=== PATIENT | male | born 1940 | race Caucasian/White ===

== ENCOUNTER 2017-01-04 16:14 | Inpatient (IN) | payer MEDICARE, OTHER ==
[~2017-01-04] VITALS: Ht 198.1 cm; Wt 111.6 kg
--- NOTE | ~2017-01-04 | HP ---
PATIENT'S NAME: WILNER JAVIER [facility] AGE: 76 Y [address] ROOM: [address] [place], [place] [address] LOCATION: GPCU ADMIT DATE: 01/04/2017 History & Physical DISCHARGE DATE: FAMILY PHYSICIAN: PHYSICIAN, UNKNOWN ATTENDING PHYSICIAN: KEMI MOSELEY DATE OF SERVICE: CHIEF COMPLAINT: Shortness of breath and ear pain. HISTORY OF PRESENT ILLNESS: This is a 76-year-old male who [facility] care. As per history obtained from the referring physician and the patient, the patient lives independently at home. He started having right neck pain and sore throat about a week ago. He also started having right ear pain at that point of time. The patient states that he put some ear drops in his right ear and that had a stinging sensation. He continued to have right ear pain. He went to his primary care physician and was prescribed some antibiotics. The patient states that the right ear pain did not get better for about 3 days and he went back and the antibiotics were changed to cefdinir at that point of time. The patient's right ear pain did not change at all. He still continues to have right ear pain and has right neck pain as well currently. He still has a sore throat and has a hacking cough per patient. He denies having any fever at home. The patient was found today at home by Home Health in a debilitated condition and then transferred to the ER at the referral hospital. The patient stated that he could not breathe at that point of time. The patient also states that after he was placed on antibiotics he has not been able to keep anything down. He started having nausea and vomiting and has not been able to keep anything down. [facility] and his saturation was 77% on room air. He was placed on nasal cannula oxygen and his saturations came up. By the time I was called, the patient was on 10 L of oxygen via nasal cannula. He was also found to be incontinent of urine. 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 He has chronic respiratory failure and uses 2 L of oxygen off and on during the day as well as night. The patient currently appears to be in atrial fibrillation with RVR. His INR is supratherapeutic and he received a dose of vitamin K at the referral hospital. He still complains of right neck pain and right ear pain that he currently rates as 4/10 intensity. He has not had any ear drainage currently. Denies any fever at this point of time. He appears to be short of breath currently. He has atrial fibrillation with rapid ventricular rate and rate of PATIENT'S NAME: WILNER JAVIER [facility] AGE: 76 Y [address] ROOM: [address] [place] [id number] [facility] AD[facility] DATE: 01/04/2017 History & Physical DISCHARGE DATE: FAMILY PHYSICIAN: PHYSICIAN, UNKNOWN ATTENDING PHYSICIAN: KEMI MOSELEY 119 beats per minute. Denies any chest pain at this point of time. Denies any lightheadedness. Denies abdominal pain, diarrhea, or constipation. He has noticed swelling in his legs bilaterally over the past few days. Denies any other complaints at this point in time. REVIEW OF SYSTEMS: A 10-point review of systems was done and was otherwise negative except as mentioned above. HOME MEDICATIONS: Per MAR. FAMILY HISTORY: Mother at age 80 from an [place]. Father had rheumatic fever and of an [place] at age 42. Brother at age 53 of an [place]. Another brother at age 14 because of spinal meningitis. Sister with irregular heart rate. Another sister is pretty healthy with no medical problems. PAST SURGICAL HISTORY: 1. Hemorrhoidectomy. 2. Left inguinal hernia repair. 3. Tonsillectomy. 4. Cystoscopy x3. PAST MEDICAL HISTORY: 1. Atrial fibrillation. 2. Congestive heart failure. 3. Hypertension. 4. Chronic hypoxic respiratory failure. 5. Former smoker. 6. Arthritis. SOCIAL HISTORY: Former smoker, [id number] smoking history. Denies alcohol use currently. PHYSICAL EXAMINATION: VITAL SIGNS: Temperature 97.7, pulse 102 and irregular, respirations 24, blood pressure 157/83, and saturation 90% on 3 L nasal canula oxygen. GENERAL: The patient is alert and oriented x3. He appears to be in mild distress because of shortness of breath. HEENT: Head: Normocephalic, atraumatic. Pupils are equal, round, and reactive to light. Nares clear. Throat clear. Pharyngeal wall erythema noted. Right tympanic membrane retracted, no drainage noted in the right ear. Left tympanic membrane is clear. NECK: Supple. Tenderness to palpation, right mastoid. No nuchal rigidity. PATIENT'S NAME: WILNER JAVIER [facility] AGE: 76 Y [address] ROOM: [address] [place], [place] [address] [facility] AD[facility] DATE: 01/04/2017 History & Physical DISCHARGE DATE: FAMILY PHYSICIAN: PHYSICIAN, UNKNOWN ATTENDING PHYSICIAN: KEMI MOSELEY HEART: Irregular rhythm, tachycardic. LUNGS: The patient has diminished breath sounds on the left side. Crackles heard on right base. Good air entry on the right base. ABDOMEN: Soft, nontender, and nondistended. Bowel sounds are present. EXTREMITIES: The patient has bilateral lower extremity edema, left greater than right. VASCULAR: Pulses 2+ distally bilaterally. The patient also has left lower extremity ulcer and buttock ulcer apparently. NEUROLOGIC: The patient is alert and oriented x3. Follows all commands. Moves all extremities. Cranial nerves 2 through 12 grossly intact. DIAGNOSTIC STUDIES: Studies were reviewed from the referral hospital. Chest x-ray was done at the referral hospital and showed left pleural plaques and consolidation with question about left infiltrate, cardiomegaly noted, interstitial edema noted bilaterally, left pleural effusion noted with associated volume loss. EKG at the referral hospital showed atrial fibrillation with rapid ventricular rate and rate of 119 beats per minute, no acute ST changes were noted. UA done at the referral hospital showed a specific gravity 1.020, otherwise negative. CMP at the referral hospital showed glucose 138, sodium 138, potassium 5.0, chloride 101, bicarb 25, BUN 32, and creatinine 2.03. AST 35, ALT 33, alkaline phosphatase 106, calcium 8.8, albumin 3.2, total protein 7.3, GFR 32, and total bilirubin 0.8. Magnesium 2.1. Lactic acid 1.5. BNP 1062. PT 103.3, INR 9.34. CBC showed a white count of 14.3, hemoglobin 9.4, hematocrit 30.1, and platelets 265. Studies done at [facility]: EKG done at [facility] showed atrial fibrillation with rapid ventricular rate and rate of 104 beats per minute and no acute ST changes. ProBNP 06071. CBC showed a white count of 11.1, hemoglobin 9.2, hematocrit 29.9, and platelets 285. CMP showed sodium 138, potassium 4.1, chloride 103, bicarb 27, BUN 34, creatinine 2.0, and glucose 107. Calcium 8.6, total protein 7.4, albumin 2.6, AST 26, ALT 19, alkaline phosphatase 114, total bilirubin 0.5, anion gap 12.1, globulin 4.2, GFR 33. PT 97.7, INR 7.8, PTT 48. Procalcitonin level 4.[address] scan of the head and neck is pending at this point of time looking for mastoiditis. We will obtain blood cultures and a urine culture now. ASSESSMENT AND PLAN: A 76-year-old male presenting with dyspnea. 1. Dyspnea. This is likely secondary to left pleural effusion and associated volume loss. The patient also may have a pneumonia focus and this could be CHF as well. 2. Congestive heart failure. I will obtain 2D echocardiogram in the morning. His proBNP is elevated given his kidney function. I will hydrate him gently and also give him a dose of Lasix. Monitor lung PATIENT'S NAME: WILNER JAVIER [facility] AGE: 76 Y [address] ROOM: [place] [address] LOCATION: GPCU ADMIT DATE: 01/04/2017 History & Physical DISCHARGE DATE: FAMILY PHYSICIAN: PHYSICIAN, UNKNOWN ATTENDING PHYSICIAN: KEMI MOSELEY closely. 3. Community-acquired pneumonia. I will place the patient on Zosyn currently. Procalcitonin is elevated, white count is decreasing. We will consider Pulmonology consult if needed. 4. Atrial fibrillation with rapid ventricular rate. Continue home medication. Currently rates are well controlled. 5. Supratherapeutic INR. The patient's INR is supratherapeutic. We will hold Coumadin. He received a dose of vitamin K at the referral hospital. Monitor INR. 6. Right ear pain. I will obtain a CT head and neck to rule out mastoiditis in the patient. We will consider ENT consult. The patient will be placed on antibiotics that should cover for mastoiditis. 7. Dyslipidemia. Continue statin. CODE STATUS: Full code discussed with the patient at the time of admission. KEMI MOSELEY MD MT/ceci /[id number] D: [id number] T: [id number] HISTORY & PHYSICAL
--- NOTE | ~2017-01-04 | CON ---
PATIENT'S NAME: WILNER JAVIER [facility] AGE: 76 Y [address] ROOM: [address] [place], [place] [address] LOCATION: GPCU ADMIT DATE: 01/04/2017 Consultation DISCHARGE DATE: FAMILY PHYSICIAN: Nicolasa Mcrae PA-C ATTENDING PHYSICIAN: KEMI MOSELEY REFERRING PHYSICIAN: Mateus Chris MD CHIEF COMPLAINT: Right otalgia. HISTORY: Wilner Javier is an elderly gentleman who I am seeing in the [facility] for evaluation of right otalgia. The patient states symptoms have been present for about a week. This has not changed his hearing overall. He denies any active drainage or vertigo. Recent CT scan suggests degenerative TMJ, otherwise unremarkable for otitis media or mastoiditis. The patient notes intermittent throat discomfort as well. PAST MEDICAL HISTORY: All documented and reviewed in the chart. SOCIAL HISTORY: All documented and reviewed in the chart. FAMILY HISTORY: All documented and reviewed in the chart. REVIEW OF SYSTEMS: All documented and reviewed in the chart. PHYSICAL EXAMINATION: HEENT: Today, head is otherwise atraumatic, normocephalic. Both ears are clear. No signs of external otitis or otitis media. Nasal exam is unremarkable. Oral cavity shows some posterior pharyngeal secretions. The remainder of the oral cavity including lips, gums, tongue, buccal mucosa, and tonsillar fossa clear. NECK: No cervical adenopathy, thyromegaly, or thyroid abnormality. IMPRESSION: Right otalgia - etiology undetermined. PLAN: Recommendations were to increase pain medication. I see no reason to treat for any ear problems. However, on CT scan, he did demonstrate sinus involvement. We will make sure he is on an oral antibiotic. No other significant findings. PATIENT'S NAME: WILNER JAVIER [facility] AGE: 76 Y [address] ROOM: [address] [place], [place] [address] LOCATION: GPCU ADMIT DATE: 01/04/2017 Consultation DISCHARGE DATE: FAMILY PHYSICIAN: Nicolasa Mcrae PA-C ATTENDING PHYSICIAN: KEMI MOSELEY MD JUANITA DOMINIQUEO/modl /[id number] d: 01/05/17 2248 t: 01/10/17 0801, CONSULTATION REPORT
--- NOTE | ~2017-01-04 | DS ---
PATIENT'S NAME: WILNER JAVIER [facility] AGE: 76 Y [address] ROOM: [address] [place], [place] [address] LOCATION: GPCU ADMIT DATE: 01/04/2017 Discharge Summary DISCHARGE DATE: 01/10/2017 FAMILY PHYSICIAN: Nicolasa Mcrae PA-C ATTENDING PHYSICIAN: Israel Rose FINAL DIAGNOSES: 1. Severe sepsis secondary to pneumonia. 2. Multifocal pneumonia. 3. Acute on chronic systolic congestive heart failure. 4. Acute kidney injury on stage 3 chronic kidney disease. 5. Iron-deficiency anemia. 6. Long-term anticoagulation. 7. Left leg ulcer, treated with Unna boot. 8. Chronic atrial fibrillation. 9. Right ear pain. Please see the history and physical dictated by Dr. Rose for details of admission. In short, the patient was admitted with sepsis and acute on chronic hypoxic respiratory failure. LABORATORY DATA: On admit, sodium 138, discharge 144; potassium on admission 4.1, got as low as 3.2, at discharge 4; BUN on admission was 34, at discharge 60; creatinine on admission was 2, got as low as 1.5, at discharge creatinine was 1.6. Liver enzymes on admission were normal. Phosphorus on admission was 2.6, discharge 2.4. Magnesium on admission 1.8, discharge 1.8. Iron 16, total iron binding capacity 61%, saturation 6. ProBNP on January 04 was 54[address]. White blood cell count on admission was 11.1 with hemoglobin of 9, hematocrit 29.9, MCV was 285. Most prior to discharge, white blood cell count 9.1, hemoglobin 9.4, hematocrit 31.7, and platelet count 329. On admission pro time was 97.7 with an INR of 7.8; most prior to discharge, pro time 36.4 with an INR 3.1. Procalcitonin on admission was 4.24. MICROBIOLOGY DATA: All studies were negative. X-RAY DATA: CT scan of his temporal bone showed he had some TMJ on the right, but no evidence of mastoiditis. Chest x-ray did show multifocal consolidation. CT scan of the chest done on January 06 showed patchy opacity consistent with pneumonia. He did have some vascular congestion. CARDIOVASCULAR DATA: An echocardiogram showed his EF was 40%. He had mild concentric left ventricular hypertrophy. HOSPITAL COURSE: The patient was admitted with acute on chronic hypoxic respiratory failure. It was felt that his sepsis was due to pneumonia. He was initiated on IV Zosyn. He was also given IV Lasix because it was felt PATIENT'S NAME: WILNER JAVIER [facility] AGE: 76 Y [address] ROOM: [place] [address] LOCATION: GPCU ADMIT DATE: 01/04/2017 Discharge Summary DISCHARGE DATE: 01/10/2017 FAMILY PHYSICIAN: Nicolasa Mcrae PA-C ATTENDING PHYSICIAN: Israel Rose that he did have a component of congestive heart failure. Echocardiogram was obtained. He did complain of significant ear pain. A CT scan was done to rule out mastoiditis. He also has significant left leg ulcer, for which [facility] had seen him. They did feel it was best to treat him with an Unna boot. Because of the ongoing pain, an Ear, Nose, and Throat physician was asked to see the patient. They did not feel that there was any pathology that required intervention, felt that maybe he was having referred pain. He was started on IV antibiotics. He was continued on diuretics, however, he continued to have problems with hypoxia. The CT scan was done, it did not show any evidence of an obstruction. He was given Mucinex and started on Solu-Medrol. His Lasix doses were increased. His Coumadin was held on admission and then was subsequently restarted when his INR returned to appropriate range. The decision was made to try Bumex and albumin to try and extract more fluid from him based on his acute kidney injury. His creatinine did improve significantly while hospitalized. The patient overall continued to feel better. He returned to his baseline. Oxygen requirements of 2 L. He did diurese a large amounts of fluid, and in fact he stated he felt much better. The decision was made to discharge him to home. The patient was found to be anemic and iron studies did indicate that he was iron deficient. He was started on iron supplements. His stools were heme tested and were negative. DISCHARGE INSTRUCTIONS: Follow up with Nicolasa Mcrae on Sunday, at which time he will need to have a pro time and a renal panel. MEDICATIONS: 1. Aspirin 81 mg daily. 2. Lipitor 20 mg at bedtime. 3. Cardizem CD 180 mg daily. 4. Augmentin 1000 mg twice daily through January 14. 5. Colace 100 mg daily. 6. Iron 325 mg daily. 7. Lasix 40 mg daily. 8. Neurontin 800 mg twice daily. 9. Humibid LA 1200 mg twice daily. 10. Xalatan 1 drop both eyes at night. 11. Metoprolol 25 mg at bedtime. 12. Potassium 20 mEq daily. 13. Ranexa 500 mg twice daily. 14. Flomax 0.4 mg at bedtime. 15. Timolol 1 drop to both eyes twice daily. 16. Tylenol No. 3 every 4 hours as needed. 17. Nexium 40 mg daily. 18. Multivitamin daily. 19. Coumadin 4.5 mg daily. 20. Prednisone 20 mg daily for 3 days, then 10 mg daily for 3 days, then 5 PATIENT'S NAME: WILNER JAVIER [facility] AGE: 76 Y [address] ROOM: [place] [address] [facility] ADMIT DATE: 01/04/2017 Discharge Summary DISCHARGE DATE: 01/10/2017 FAMILY PHYSICIAN: Nicolasa Mcrae PA-C ATTENDING PHYSICIAN: Israel Rose mg daily for 3 days, then stop. We did advise not to restart his Coumadin until January 11. Home Health will follow. He will also have the unna boot changed weekly, then they will transition to compression Gradient stockings. NICK KRUEGER MD LAW/modl /[id number] d: 01/11/171 t: 01/17/17 1643, DISCHARGE SUMMARY
--- NOTE | ~2017-01-04 | ECHO ---
Transthoracic Echocardiography Report (TTE) Demographics Patient Name WILNER JAVIER Date of Study 01/05/2017 Patient Number [id number] Visit Number [id number] Date of 1940 Room Number [address]6321 Gender Male Number Age 76 year(s) Referring Milton Hunt MD Stevedoring Supervisor Andressa Ayala, Physician RT,RVT,RDCS Physician Interpreting Mariana Quevedo MD Stitching Machine Setter Physician Supervising Ordering Mariana Quevedo MD, MD/MLP Physician Milton Hunt MD Nurse Stress Medical Receptionist Assistant Conclusions Contractility Score Summary Global Left Ventricular Hypokinesis was noted. Summary The estimated left ventricular ejection fraction is 40%. The left atrium is moderately dilated by LA volume index measurement. Mild to moderate concentric left ventricular hypertrophy. The right atrium is mildly dilated. Mildly dilated right ventricle. The aortic root appears mildly dilated. The maximum diameter measures 4.1 cm. The aortic valve is mildly sclerotic. There is mild pulmonary hypertension. The pulmonary pressure (RVSP) is 43 mmHg. Procedure Type of Study TTE procedure:2D Echocardiogram, M-Mode, Doppler , Color Doppler. Procedure Date Date: 01/05/2017 Start: 09:28 AM Study Location: Inpatient Portable Technical Quality: Limited visualization due to lung interference. Indications:Congestive heart failure. Appropriate Use Criteria: 9 Patient Status: Routine Rhythm: Atrial fibrillation HR: 104 bpm BP: 133/71 mmHg M-Mode/2D Measurements LV Diastolic Dimension: 5.38 cm LV Systolic Dimension: 4.88 cm LV Septum Diastolic: 1.33 cm LV Septum Systolic: 1.94 cm LV PW Diastolic: 1.57 cm LV PW Systolic: 1.65 cm Cardiac Output: 5.18 l/min AO Root Dimension: 4.1 cm RV Diastolic Dimension: 3.41 cm LA Dimension: 4.9 cm EF Estimated: 30 % LA volume: 163 ml RV Base: 5.6 cm LVOT: 2.2 cm RV Mid: 4.3 cm LVOT VTI: 13.1 cm RV Length: 8.8 cm LV Stroke volume: 49.77 ml Doppler Measurements AV Peak Velocity: 1.49 m/s MV Peak E-Wave: 1.02 m/s AV Peak Gradient: 8.88 mmHg AV Mean Gradient: 4 mmHg MV P1/2t: 57 msec LVOT Peak Velocity: 0.79 m/s TR Velocity:1.98 m/s PV Peak Velocity: 0.77 m/s TR Gradient:15.68 mmHg PV Peak Gradient: 2.36 mmHg Estimated RAP:10 mmHg Estimated PASP: 25.68 mmHg Estimated RVSP: 26 mmHg A' Septal Velocity: 0.04 m/s E' Septal Velocity: 0.1 m/s MV E/E' Ratio: 10.2 Findings Left Ventricle Mild to moderate concentric left ventricular hypertrophy. Right Ventricle Mildly dilated right ventricle. Left Atrium The left atrium is moderately dilated Right Atrium The right atrium is mildly dilated. Mitral Valve Normal mitral valve structure and function. Aortic Valve The aortic valve is moderately sclerotic. Tricuspid Valve There is mild pulmonary hypertension. The pulmonary pressure (RVSP) is 43 mmHg. Moderate tricuspid regurgitation by color Doppler. Pulmonic Valve Mild pulmonic valve regurgitation by color Doppler. Pericardial Effusion No evidence of pericardial effusion. Miscellaneous The aortic root appears mildly dilated. The maximum diameter measures 4.1 cm. Pleural Effusion No evidence of pleural effusion. Contractility Score LV regional wall motion:(0-Non visualized 1-Normal 2-Hypokinesis 3-Akinesis 4-Dyskinesis 5-Aneurysm) Signature dtt: Sae Peña (cardio) dtd: 01/05/17 0928 Physician Self Edit
[~2017-01-04 16:14] MED LIST: ASPIRIN LO-DOSE81 MG PO; BUMEX1 MG PO; CARDIZEM CD180 MG PO; CENTRUM COMPLE1 EACH PO; CIPRO500 MG PO; COLACE100 MG PO; COUMADIN ** IA3 MG PO; COUMADIN6 MG PO; DELTASONE20 MG PO; FLOMAX0.4 MG PO; ILOTYCIN1 GM OPHTH; K-TAB 10MEQ10 MEQ PO; LIPITOR20 M1 PO; LOPRESSOR25 MG PO; LOTRIMIN30 GM TOP; LOVENOX 10100 MG/1 M SUB-Q; MYCOLOG OINTMEN15 GM TOP; NEURONTIN800 MG PO; NEXIUM40 MG PO; PRILOSEC20 MG PO; RANEXA ER500 MG PO; TIMOPTIC 0.5%15 ML OPHTH; TOPROL XL25 MG PO; TYLENOL325 MG PO; XALATAN2.5 ML OPHTH; ZOCOR20 MG PO
[2017-01-04] MEDS ORDERED: TYLENOL/COD#3**1 TAB PO (17:36)
[2017-01-04] MEDS ORDERED: OMNICEF 300MG300 MG PO (17:37)
[2017-01-04] MEDS ORDERED: AUGMENTIN XR1000 MG PO (17:38)
[2017-01-04] MEDS ORDERED: K-TAB ER20 MEQ PO (17:38)
[2017-01-04] MEDS ORDERED: LASIX20 MG PO (17:38)
[2017-01-04 18:08] LABS: BASOPHIL % 0.3 %; EOSINOPHIL % 0.1 %; HEMATOCRIT 29.9 % (37.0-53.0); IMMATURE GRANULOCYTE # 0.1 K/uL (0.0-0.3); IMMATURE GRANULOCYTE % 0.4 %; LYMPHOCYTE # 1.1 K/uL (0.8-4.0); LYMPHOCYTE % 9.8 %; MCHC 30.1 gm/dL (32.0-36.5); MONOCYTE # 1.6 K/uL (0.0-1.0); MPV 10.3 fl (9.4-12.4); NEUTROPHIL # (ANC) 8.4 K/uL (1.4-9.0); NEUTROPHIL % 75.4 %; NRBC % 0 /100WBC (0-0.00); RDW-CV 14.9 % (11.9-14.6); WBC 11.1 K/uL (4.0-11.0)
[2017-01-04 18:19] LABS: MCH 26.9 pg (27.0-34.0); MCV 89.3 fl (83.0-98.0); PLATELET COUNT 285 K/uL (150-450); RBC 3.35 M/uL (3.50-5.50)
[2017-01-04 18:25] LABS: PTT 48 SECONDS (25-32)
[2017-01-04 18:26] LABS: ALBUMIN 2.6 gm/dL (3.5-5.0); ANION GAP 12.1 (10.0-19.0); CALCIUM 8.6 mg/dL (8.5-10.5); POTASSIUM 4.1 mMol/L (3.7-5.1); PROTIME 97.7 SECONDS (9.6-11.1); TOTAL PROTEIN 7.4 g/dL (6.0-8.4)
[2017-01-04 18:28] LABS: INR - (THERAPEUTIC) 7.8 (0.9-1.1)
[2017-01-04 18:32] LABS: TOTAL BILIRUBIN 0.5 mg/dL (0.0-1.5)
--- NOTE | 2017-01-04 18:48 | NUR ---
Direct admit at 1620, patient is from [place]. Home health RN found patient at home, lethargic, 77% on RA. Patient taken to ER, found INR of 9.3, short of breath, cough present, not feeling well for 2 days. On 2L NC, LATONYA & LLL coarse crackles, RUL inspiratory wheezes. Afib, rates 100-120's. Bowel sounds hypoactive, abdomen distended, slightly firm, last BM 01/02/. 2+ lower extremity edema, with L) foot 3+. Zosyn initiated, 40 IV lasix given, NS at 70 ml/hr. Patient is to have a head CT without contrast and C-xray. Complaint of R) ear pain, that has been intermittent for a few days.
[2017-01-05 03:17] LABS: BILIRUBIN URINE NEGATIVE (NEGATIVE); BLOOD URINE 250 /UL (NEGATIVE); COLOR URINE YELLOW (YELLOW); GLUCOSE URINE NEGATIVE (NEGATIVE); KETONE URINE NEGATIVE (NEGATIVE); LEUKOCYTES URINE 100 /UL (NEGATIVE); NITRITE URINE NEGATIVE (NEGATIVE); PROTEIN URINE 30 mg/dL (NEGATIVE); SPEC GRAVITY URINE 1.015 (1.003-1.035); TURBIDITY URINE 1+ (CLEAR); UROBILINOGEN URINE NORMAL (NORMAL)
[2017-01-05 03:27] LABS: BACTERIA URINE RARE (NEGATIVE); EPITHELIAL URINE 0-2 #/HPF (NEGATIVE); RBC URINE 20-50 #/HPF (NEGATIVE); WBC URINE 50-100 #/HPF (NEGATIVE)
[2017-01-05 03:28] LABS: AMORPHOUS URINE 1+ (NEGATIVE); YEAST URINE RARE (NEGATIVE)
[2017-01-05 04:36] LABS: HEMATOCRIT 29.1 % (37.0-53.0); HEMOGLOBIN 8.6 g/dL (11.0-16.0); MCH 26.4 pg (27.0-34.0); MCHC 29.6 gm/dL (32.0-36.5); MCV 89.3 fl (83.0-98.0); MPV 9.9 fl (9.4-12.4); PLATELET COUNT 247 K/uL (150-450); RBC 3.26 M/uL (3.50-5.50); RDW-CV 15.1 % (11.9-14.6); WBC 8.9 K/uL (4.0-11.0)
[2017-01-05 04:44] LABS: INR - (THERAPEUTIC) 2.6 (0.9-1.1); PROTIME 30.1 SECONDS (9.6-11.1)
--- NOTE | 2017-01-05 04:51 | NUR ---
Significant Event: A&Ox4. VSS, with HR continuing to be in 100-120's A fib. Came in c/o R) ear pain. CT to r/o mastoiditis, neg. Continues on 2-3L O2, baseline O2 2L. Hx of CHF. HR running 100-120's, A fib. INR 7.8 01/04 @ 1801. Strict bedrest d/t INR. LFA IVF @ 70/hr with int zosyn. Gomez placed d/t difficulty urinating. L milner ulcer, R buttocks ulcer, bottom and groin reddened. WOC following. Follow up:
[2017-01-05 04:52] LABS: CALCIUM 8.5 mg/dL (8.5-10.5); CREATININE 1.9 mg/dL (0.6-1.3)
[2017-01-05 05:21] LABS: ABSOLUTE NEUTROPHIL CT (ANC) 7.5 K/uL (1.4-9.0); BANDED NEUTROPHIL # 0.5 K/uL (0.0-0.1); BANDED NEUTROPHILS % 6 %; LYMPHOCYTE # 0.6 K/uL (0.8-4.0); LYMPHOCYTE % 7 %; MONOCYTE # 0.8 K/uL (0.0-1.0); SEGMENTED NEUTROPHIL # 6.9 K/uL (1.4-9.0); SEGMENTED NEUTROPHIL % 78 %
--- NOTE | 2017-01-05 11:26 | NUR ---
Introduced self and role of care management to patient. He lives in [facility] with his . He states that he is able to do some of his own ADL's. His does assist if needed. He uses a walker at home. He plans on returning home on discharge. He denies any needs at this time. Will continue to follow.
--- NOTE | 2017-01-05 16:09 | NUR ---
Significant Event: PT IS HEART RATE BEEN 90'S-115 MOST OF SHIFT. GOT A DOSE OF BUMEX AND DIGOXIN THIS AFTERNOON. IS OFF BED REST UP WITH 2 ASSIST MINIMAL ONE TO HELP PT AND ON TO DO IV POLE. HAD LARGE BM TODAY. CARDIAC DIET. LABS AND XRAY IN MORNING. DAILY INR. 1800 LABS TO BE CALLED TO DR KRUEGER, Follow up: MONITOR
[2017-01-05 18:38] LABS: ALBUMIN 2.4 gm/dL (3.5-5.0); ANION GAP 9.8 (10.0-19.0); CALCIUM 8.4 mg/dL (8.5-10.5); CREATININE 1.7 mg/dL (0.6-1.3); MAGNESIUM 1.8 mg/dL (1.3-2.6); PHOSPHORUS 2.6 mg/dL (2.5-4.9); POTASSIUM 3.8 mMol/L (3.7-5.1)
[2017-01-06 03:53] LABS: HEMATOCRIT 28.1 % (37.0-53.0); HEMOGLOBIN 8.3 g/dL (11.0-16.0); MCH 26.4 pg (27.0-34.0); MCHC 29.5 gm/dL (32.0-36.5); MCV 89.5 fl (83.0-98.0); MPV 10.1 fl (9.4-12.4); PLATELET COUNT 249 K/uL (150-450); RBC 3.14 M/uL (3.50-5.50); RDW-CV 14.9 % (11.9-14.6); WBC 8.5 K/uL (4.0-11.0)
[2017-01-06 04:09] LABS: ALBUMIN 2.2 gm/dL (3.5-5.0); ANION GAP 9.7 (10.0-19.0); CALCIUM 8.3 mg/dL (8.5-10.5); CREATININE 1.6 mg/dL (0.6-1.3); MAGNESIUM 1.8 mg/dL (1.3-2.6); PHOSPHORUS 2.8 mg/dL (2.5-4.9); POTASSIUM 3.7 mMol/L (3.7-5.1)
[2017-01-06 04:10] LABS: INR - (THERAPEUTIC) 1.7 (0.9-1.1); PROTIME 18.8 SECONDS (9.6-11.1)
--- NOTE | 2017-01-06 04:13 | NUR ---
Significant Event: Patient A/Ox3. VSS on 2L NC. Up 1-2 assist with walker and gait belt. INR this morning was 1.7. Patient received one tylenol 3 last night around 1999 for ear pain. No complaints of pain since. Q2h repositioning for sore on bottom. Sore on leg is dressed and wrapped in coban. Follow up: Continue plan of care.
[2017-01-06 04:28] LABS: BANDED NEUTROPHIL # 1.7 K/uL (0.0-0.1); BANDED NEUTROPHILS % 20 %; LYMPHOCYTE # 0.8 K/uL (0.8-4.0); LYMPHOCYTE % 9 %; MONOCYTE # 0.6 K/uL (0.0-1.0); SEGMENTED NEUTROPHIL # 5.3 K/uL (1.4-9.0); SEGMENTED NEUTROPHIL % 62 %
--- NOTE | 2017-01-06 16:19 | NUR ---
Significant Event: A/O. VSS on 2L/NC. C/o pain to ear tylenol 3 given this afternoon. Gomez to DD with 900ml out. CT of chest this afternoon. Up with 1 assist and walker. Follow up:
--- NOTE | 2017-01-07 04:36 | NUR ---
Significant Event: Patient a/ox3 vss on 3L. Patient has had an increasing upper respiratory wheeze that does not sound as though it originates in his lungs. Respiratory therapy did increase oxygen from 2-3L last night because of this. Patient has had no complaints of pain tonight. 1375 out of catalan. Follow up: Continue plan of care
[2017-01-07 06:22] LABS: BASOPHIL % 0.3 %; EOSINOPHIL # 0.2 K/uL (0.0-0.5); EOSINOPHIL % 2.1 %; HEMATOCRIT 31.7 % (37.0-53.0); HEMOGLOBIN 9.4 g/dL (11.0-16.0); IMMATURE GRANULOCYTE # 0.1 K/uL (0.0-0.3); IMMATURE GRANULOCYTE % 0.6 %; LYMPHOCYTE % 10.5 %; MCH 26.9 pg (27.0-34.0); MCHC 29.7 gm/dL (32.0-36.5); MCV 90.6 fl (83.0-98.0); MONOCYTE # 1.1 K/uL (0.0-1.0); MONOCYTE % 12.6 %; MPV 10.4 fl (9.4-12.4); NEUTROPHIL # (ANC) 6.7 K/uL (1.4-9.0); NEUTROPHIL % 73.9 %; NRBC % 0 /100WBC (0-0.00); RDW-CV 14.7 % (11.9-14.6); WBC 9.1 K/uL (4.0-11.0)
[2017-01-07 06:23] LABS: PLATELET COUNT 329 K/uL (150-450)
[2017-01-07 06:42] LABS: ALBUMIN 2.4 gm/dL (3.5-5.0); ANION GAP 8.8 (10.0-19.0); CALCIUM 8.6 mg/dL (8.5-10.5); CREATININE 1.5 mg/dL (0.6-1.3); PHOSPHORUS 3.4 mg/dL (2.5-4.9); POTASSIUM 3.8 mMol/L (3.7-5.1)
--- NOTE | 2017-01-07 16:21 | NUR ---
Significant Event: A/O. VSS 2L/NC. C/o ear pain. 2-01/05. Refused to get up and walk, states hes too tired. Up in chair and repo q2h. Gomez to DD. Frequent cough. Mucinex started today as well as solumedrol and lasix frequency increased. Follow up:
--- NOTE | 2017-01-08 04:22 | NUR ---
Significant Event: Patient A/Ox3. VSS on 3L NC. Up 1-assist with walker and gait belt. Good UOP this shift. Patient does tend to desat to the 80s when he is sleeping heavily, but he informed RT that he wears a Cpap at home at night. Follow up: Continue plan of care
[2017-01-08 04:25] LABS: ALBUMIN 2.2 gm/dL (3.5-5.0); CALCIUM 8.7 mg/dL (8.5-10.5); CREATININE 1.5 mg/dL (0.6-1.3); MAGNESIUM 1.6 mg/dL (1.3-2.6); PHOSPHORUS 3.1 mg/dL (2.5-4.9); POTASSIUM 3.9 mMol/L (3.7-5.1)
[2017-01-08 04:26] LABS: ANION GAP 8.9 (10.0-19.0)
[2017-01-08 04:29] LABS: PROTIME 35.1 SECONDS (9.6-11.1)
--- NOTE | 2017-01-08 12:25 | NUR ---
Social visit with patient today. He states he is feeling better. We discussed discharge plans. He is still planning home with his at this time. I did discuss having home health follow to change his unna boot. He is open to this option so he would not have to drive to [place] every week. I called and left a message with [facility] [phone]. The cloud administrator is to call be back. Will continue to follow.
--- NOTE | 2017-01-08 16:49 | NUR ---
Significant Event: A/O X3, FORGETFUL. UP WITH 1 ASSIST, GB AND WALKER. C/O PAIN TO RIGHT EAR, TYLENOL #3 AND TYLENOL 650 MG BOTH GIVEN X1 WITH GOOD RELIEF. IV TO LEFT WRIST WITH BUMEX GTT @ 0.5 MG/HR AND NS CARRIER @ 15 ML/HR. LEFT INNER FA IV SL'D. ALBUMIN 25% GIVEN X2. VSS. LORRIE ON 1L NC. IRENE PATENT WITH 875 ML UOP. Follow up:
[2017-01-08 16:57] LABS: ALBUMIN 2.8 gm/dL (3.5-5.0); CALCIUM 8.7 mg/dL (8.5-10.5); CREATININE 1.8 mg/dL (0.6-1.3); MAGNESIUM 1.5 mg/dL (1.3-2.6); POTASSIUM 3.5 mMol/L (3.7-5.1)
[2017-01-08 16:58] LABS: ANION GAP 11.5 (10.0-19.0); PHOSPHORUS 1.9 mg/dL (2.5-4.9)
--- NOTE | 2017-01-09 04:13 | NUR ---
A/O. HR 70-90s. SBP 120-140s. 1L NC. AFEBRILE. BUMEX GTT AT 0.5MG/HR. IRENE INTACT 1050ML UOP. DENIES PAIN. NO BM. STILL NEED XENIA TESTx3. L) LEG UNNA BOOT INTACT. 1A WALKER GAITBELT.
[2017-01-09 05:57] LABS: ALBUMIN 2.9 gm/dL (3.5-5.0); ANION GAP 9.2 (10.0-19.0); CALCIUM 8.7 mg/dL (8.5-10.5); CREATININE 1.6 mg/dL (0.6-1.3); MAGNESIUM 1.6 mg/dL (1.3-2.6); PHOSPHORUS 2.9 mg/dL (2.5-4.9); POTASSIUM 3.2 mMol/L (3.7-5.1)
[2017-01-09 05:58] LABS: PROTIME 47.5 SECONDS (9.6-11.1)
--- NOTE | 2017-01-09 12:59 | NUR ---
Social visit with patient today. I explained to him that I had spoke to the home health co in both [place] and [place]. Since he Jemal is in [facility] he would have to use the home health out of [place]. However they do not change unnaboots. I did call and speak with the SWB coordinator at the [facility] to see who they use. She stated that if he was to come to the Physical therapy dept. as an outpatient they do all the wound care and can change unna boots. I explained all this to Luis M and he is willing to go to the [facility] keisha have his unna boot changed. Note left for Dr Christopher. Will continue to follow.
--- NOTE | 2017-01-09 15:12 | NUR ---
Introduced self and purpose of heart healthy education and care transitions. Calendar given, information reviewed, verbalized understanding.
--- NOTE | 2017-01-09 19:09 | NUR ---
Significant Event: Patient alert and oriented. Vital signs stable on 2L via nasal cannula. UP with 1 assist with walker and gaitbelt. No complaitns of pain. IVs saline locked with no complications. Unna boot to left lower extremity. Turned Q2hrs. Pleasant and cooperative with cares. Follow up:
[2017-01-10 04:55] LABS: PROTIME 36.4 SECONDS (9.6-11.1)
[2017-01-10 04:56] LABS: INR - (THERAPEUTIC) 3.1 (0.9-1.1)
[2017-01-10 05:01] LABS: ALBUMIN 3.5 gm/dL (3.5-5.0); CALCIUM 8.9 mg/dL (8.5-10.5); CREATININE 1.6 mg/dL (0.6-1.3); MAGNESIUM 1.8 mg/dL (1.3-2.6); PHOSPHORUS 2.4 mg/dL (2.5-4.9)
--- NOTE | 2017-01-10 05:57 | NUR ---
Significant Event: A/0 X 3, AMBULATES 1 ASSIST GAIT BELT WALKER. VSS ON 2L 02. GETS ALBUMIN [id number] LUNGS COARSE/WHEEZY. IRENE INTACT 1100 UOP. NOT GOING TO DISCHARGE WITH HOME HEALTH CAUSE UNNA BOOTS, BUT [facility] COULD POSSIBLE TAKE. ONLY PAIN MED GIVEN AT 0440 TYLENOL WITH CODEIN FOR HEADACHE. Follow up:
--- NOTE | 2017-01-10 13:00 | NUR ---
Received a call from Dorothy Campos RN with the [facility]. She states that she has Luis M on service at this time. She would like to resume [facility] and he can have the [facility] PT dept come to his home to change his Unna Boot. She also states that patient does not like to go to the hospital due to financial reasons. I did give him a financial assistance form and Dorothy stated she will assist him in completing the form. I explained the change in plans about the Unna Boot to both Luis M and Dr Christopher. I called and spoke with Jolene at [facility] PT dept and she states [facility] will call and schedule at [facility] for them to change his Unna Boot on Wednesday 01/17.
[2017-01-10] MEDS ORDERED: FEOSOL325 MG PO (13:38)
[2017-01-10] MEDS ORDERED: MUCINEX600 MG PO (13:39)
[2017-01-10] MEDS ORDERED: DELTASONE10 MG PO (13:43)
[2017-01-10] MEDS ORDERED: AUGMENTIN XR1000 MG PO (13:56)
== END 2017-01-10 15:15 | disposition disaster alternative care site (69) | DRG 871 ==
LOC: GPCU 16:14
PROVIDERS: Internal Medicine; ADMIT Family Medicine
DX: A41.9 Sepsis, unspecified organism (principal); I50.23 Acute on chronic systolic (congestive) heart failure; J96.21 Acute and chronic respiratory failure with hypoxia; N17.9 Acute kidney failure, unspecified; L89.313 Pressure ulcer of right buttock, stage 3; J18.9 Pneumonia, unspecified organism; I48.91 Unspecified atrial fibrillation; L89.893 Pressure ulcer of other site, stage 3; H92.01 Otalgia, right ear; M54.2 Cervicalgia; Z87.891 Personal history of nicotine dependence; E78.5 Hyperlipidemia, unspecified; Z79.01 Long term (current) use of anticoagulants; I12.9 Hypertensive chronic kidney disease with stage 1 through stage 4 chronic kidney disease, or unspecified chronic kidney disease; N18.3 Chronic kidney disease, stage 3 (moderate); R65.20 Severe sepsis without septic shock; D50.9 Iron deficiency anemia, unspecified
CPT/HCPCS: J1160; J1940; J2543; J2920; J7030; J7040; J7512; P9047